=== PATIENT | male | born 1975 | race Caucasian/White ===

== ENCOUNTER 2019-02-09 13:42 | Emergency (ER) | payer MEDICAID ==
[~2019-02-09] VITALS: Ht 180.3 cm; Wt 93.4 kg
[2019-02-09 13:50] VITALS: Ht 180.3 cm; Wt 93.4 kg
[2019-02-09 14:59] LABS: BASOPHIL % 0.5 % (0-2); PLATELET COUNT 270 x10^3mcL (130-400)
[2019-02-09 15:04] LABS: CALCIUM 8.5 mg/dL (8.5-10.1); CHLORIDE SERUM 109 mmol/L (98-107); CREATININE SERUM 1.1 mg/dL (0.7-1.3); GFR1 > 60 mL/min; GLUCOSE SERUM 95 mg/dL (74-106); POTASSIUM SERUM 4.2 mmol/L (3.5-5.1); SODIUM SERUM 147 mmol/L (136-145)
[2019-02-09 15:09] LABS: ALKALINE PHOSPHATASE 68 U/L (46-116); ALT/SGPT 27 U/L (16-63); AST/SGOT 14 U/L (15-37); BILIRUBIN TOTAL 0.47 mg/dL (0.20-1.00); TOTAL PROTEIN, SERUM 7.6 g/dL (6.4-8.2)
[2019-02-09 15:57] VITALS: BP 131/86
== END 2019-02-09 16:15 | disposition home or self-care (01) ==
LOC: ED 13:42
PROVIDERS: Emergency Medicine
DX: L03.115 Cellulitis of right lower limb (principal)
CPT/HCPCS: 36415